=== PATIENT | male | born 1940 | race Hispanic/Latino ===

== ENCOUNTER 2023-06-25 21:59 | Emergency (ER) | payer MEDICARE ==
[2023-06-26] MEDS ORDERED: Boostrix 0.5 ML (Tdap) VIAL (>/=7 yrs of age) ONE (01:13)
[2023-06-26] MEDS ORDERED: Lidocaine 1% PF 5 ML VIAL ONE (01:49)
== END 2023-06-26 03:55 | disposition home or self-care (01) ==
LOC: ERS 21:59
DX: S01.81XA Laceration without foreign body of other part of head, initial encounter (principal); S02.2XXA Fracture of nasal bones, initial encounter for closed fracture; I10 Essential (primary) hypertension; W18.30XA Fall on same level, unspecified, initial encounter; Z23 Encounter for immunization
CPT/HCPCS: 12011; 70450; 70486; 72125; 90471; 90715